=== PATIENT | female | born 1960 | race Caucasian/White ===

== ENCOUNTER 2017-01-05 22:25 | Emergency (ER) | payer OTHER ==
[~2017-01-05] VITALS: Ht 180.3 cm; Wt 80.0 kg
[2017-01-05] MEDS ORDERED: GABA300T26 PO (22:48)
[2017-01-05] MEDS ORDERED: LEVO200 PO (22:48)
[2017-01-05] MEDS ORDERED: OMEP20 PO (22:48)
[2017-01-05] MEDS ORDERED: OXYC10 PO (22:48)
[2017-01-05] MEDS ORDERED: GLUC1I IM (22:48)
[2017-01-05] MEDS ORDERED: ONDA4 PO (22:52)
[2017-01-05] MEDS ORDERED: BECL8.7A7 (22:52)
[2017-01-05] MEDS ORDERED: INSU100C14 SQ (22:52)
[2017-01-05] MEDS ORDERED: ALBU8HFA IH (22:52)
[2017-01-05] MEDS ORDERED: INSU100I26 SQ (22:52)
[2017-01-05 22:57] LABS: GLUCOSE,POINT OF CARE 101 MG/DL (70-110)
[2017-01-06 03:44] VITALS: BP 138/76
== END 2017-01-06 03:55 | disposition home or self-care (01) ==
LOC: EMS 22:28
DX: M79.671 Pain in right foot (principal); M79.672 Pain in left foot; I10 Essential (primary) hypertension; E11.9 Type 2 diabetes mellitus without complications; F17.210 Nicotine dependence, cigarettes, uncomplicated; Z79.4 Long term (current) use of insulin
CPT/HCPCS: 82962; 99283